=== PATIENT | male | born 1945 | race Caucasian/White ===

== ENCOUNTER 2018-12-11 12:36 | Emergency (ER) | payer OTHER ==
[~2018-12-11] VITALS: Ht 182.9 cm; Wt 80.7 kg
[~2018-12-11 12:36] MED LIST: ASPIRIN81 M2 PO; ATORVASTATIN CA80 MG; EFFIENT10 MG; LISINOPRIL5 MG; LOPRESSOR25
[2018-12-11 13:02] LABS: ABSOLUTE EOSINOPHILS 0.1 thou/uL (0.0-0.7); ABSOLUTE LYMPHOCYTES 0.8 thou/uL (0.8-5.3); ABSOLUTE MONOCYTES 0.8 thou/uL (0.0-1.2); ABSOLUTE NEUTROPHILS 7.7 thou/uL (1.6-8.1); BASOPHILS 0.3 %; EOSINOPHILS 0.7 %; HEMATOCRIT 44.3 % (42.0-52.0); HEMOGLOBIN 15.1 gm/dL (14.0-18.0); LYMPHOCYTES 8.8 %; MCH 30.2 pg (26.0-34.0); MCV 88.9 fL (80.0-100.0); MPV 8.2 fl. (7.2-11.1); NUCLEATED RBCS 0 /100WBC; PLATELET COUNT* 193 thou/uL (150-400); POLYS 82.2 %; RBC 4.98 mil/uL (4.50-6.00); RDW-CV 14.3 % (10.5-14.5); WBC 9.4 thou/uL (4.0-11.0)
[2018-12-11 13:21] LABS: ALBUMIN 3.5 g/dL (3.4-5.0); ALKALINE PHOSPHATASE 69 U/L (46-116); ANION GAP 9 mmol/L (7-16); BUN 22 mg/dL (7-18); CALCIUM 9.3 mg/dL (8.5-10.1); CHLORIDE 105 mmol/L (98-107); CO2 28 mmol/L (21-32); CREATININE 1.4 mg/dL (0.6-1.3); GLUCOSE 103 mg/dL (70-99); POTASSIUM 4.2 mmol/L (3.5-5.1); SGOT 27 U/L (15-37); SGPT 27 U/L (30-65); SODIUM 142 mmol/L (136-145); TOTAL BILIRUBIN 0.6 mg/dL (<0.1-1.0); TOTAL PROTEIN 6.9 g/dL (6.4-8.2); TROPONIN-I LEVEL <0.06 ng/mL (<0.06)
[2018-12-11] MEDS ORDERED: TORADOL 10 MG T10 MG PO (13:55)
[2018-12-11] MEDS ORDERED: NORCO 5-325 TA1 EACH PO (13:55)
[2018-12-11] MEDS ORDERED: VALIUM5 MG PO (13:55)
[2018-12-11] MEDS ORDERED: IBUPROFEN 800800 MG PO (14:09)
[2018-12-11 14:51] VITALS: BP 123/91
== END 2018-12-11 14:52 | disposition home or self-care (01) ==
LOC: M.ERS 12:36
PROVIDERS: Personal Emergency Response Attendant
DX: S22.42XA Multiple fractures of ribs, left side, initial encounter for closed fracture (principal); S80.212A Abrasion, left knee, initial encounter; S80.211A Abrasion, right knee, initial encounter; S40.212A Abrasion of left shoulder, initial encounter; Z95.5 Presence of coronary angioplasty implant and graft; V29.09XA Motorcycle driver injured in collision with other motor vehicles in nontraffic accident, initial encounter; Y93.89 Activity, other specified; Y92.89 Other specified places as the place of occurrence of the external cause; Y99.8 Other external cause status